=== PATIENT | male | born 1950 | race Caucasian/White ===

== ENCOUNTER 2017-01-19 14:04 | Emergency (ER) | payer OTHER ==
--- NOTE | 2017-01-19 14:13 | PDOC ---
Attending Attestation - Resident Resident Name: ReynaErasto - ED Attending Attestation I have performed the following: I have examined & evaluated the patient, The case was reviewed & discussed with the resident, I agree w/resident's findings & plan, Exceptions are as noted - HPI HPI: 01/19/17 15:44 Patient with chronically unstable gait since traumatic brain injury, tripped and fell, striking his left shoulder and the left side of his forehead on a tree trunk. No loss of consciousness. Arose immediately. Asymptomatic at present except for feeling a little "groggy", but he has felt this way since increasing his Lyrica dosage one week ago. - Physicial Exam PE: 01/19/17 15:45 Vital signs are normal. Alert oriented 3 cheerful and cooperative. Physical exam is notable for frozen left shoulder, range of motion, which is unchanged since his fall. No deformity point tenderness or pain at present in the shoulder. Minor superficial abrasion left forehead. No hematoma ecchymosis depression or point tenderness. Funduscopic exam is negative with sharp disc margins and good central venous pulsations noted. Neurological intact except for weakness of the trapezius muscle on the left and decreased sensation at the base of the thumb, which are unchanged since his pain injury. Remainder of physical exam within normal limits including sensory and motor of the extremities, except as noted above 01/19/17 15:49 - Medical Decision Making 01/19/17 15:47 Patient with minor injuries, no sign of serious neurologic or orthopedic trauma. Maintained on 1 full strength aspirin each day. Resident physician noted irregular heartbeat on exam. Plan brain CT, EKG, and labs. Further evaluation and treatment depending on results. Patient remained fully alert, no neurologic deficits, and asymptomatic. 01/19/17 17:15 CT: No acute injurie. EKG unchanged. Compared to previous tracing obtained from [facility]. Labs no significant abnormalities.
[2017-01-19 14:39] VITALS: BP 111/77; PULSE 56; TEMP 97.6; BMI 22.3
--- NOTE | 2017-01-19 15:12 | PDOC ---
History of Present Illness - General Chief Complaint: Injury Stated Complaint: FELL HITTING HIS HEAD THIS AM History Source: Patient, Family Exam Limitations: No Limitations - History of Present Illness Initial Comments: 01/19/17 15:05 The patient is a 66M with a PMH of CVA, spinal cord injury (cervical) and TBI who presented to the ED after sustaining a fall. The patient states that he was standing on his driveway when he crossed his legs and did not uncross them before taking a step. He states that he is on full strength asa, denies LOC, but admits to hitting his head after hitting his shoulder. The patient states he 's had a recent medication change, increase in lyrica and an addition of topomax and tramadol. The patient's only complaint is a "groggy" feeling after falling. He denies CP, SOB, numbness, tingling, weakness, nausea, or vomiting. PCP: Uzma Beltran Past History - Past Medical History Allergies/Adverse Reactions: Allergies Allergy/AdvReac Type Severity Reaction Status Date / Time No Known Allergies Allergy Verified 01/19/17 14:18 Home Medications: Ambulatory Orders Bupropion HCl [Wellbutrin Xl -] 300 mg PO DAILY 08/07/13 Lamotrigine [Lamictal Xr] 200 mg PO DAILY 08/07/13 Quetiapine Fumarate [Seroquel] 25 mg PO HS 08/07/13 Solifenacin Succinate [Vesicare] 10 mg PO DAILY 08/07/13 Aspirin [ASA -] 325 mg PO DAILY 01/19/17 Baclofen 5 mg PO QID 01/19/17 Pregabalin [Lyrica] 300 mg PO DAILY 01/19/17 Topiramate [Topamax] 25 mg PO BID 01/19/17 Tramadol HCl [Tramadol HCl ER] 100 mg PO HS 01/19/17 Anemia: No Asthma: No Cancer: No Cardiac Disorders: No CVA: Yes COPD: No CHF: No Dementia: No Diabetes: No GI Disorders: No Disorders: No HTN: No Hypercholesterolemia: No Liver Disease: No Seizures: No Thyroid Disease: No Other medical history: SPINAL CORD INJURY, TRAUMATIC BRAIN INJURY - Surgical History Abdominal Surgery: No Appendectomy: No Cardiac Surgery: No Cholecystectomy: No Lung Surgery: No Neurologic Surgery: No Orthopedic Surgery: Yes (Bilateral Shoulder Repair,Cervical Microdiscectomy, Left Hip Resurfacing) - Suicide/Smoking/Psychosocial Hx Smoking History: Never smoked Information on smoking cessation initiated: No Hx Alcohol Use: No Drug/Substance Use Hx: No Substance Use Type: None Hx Substance Use Treatment: No Review of Systems - Review of Systems Able to Perform ROS?: Yes Comments:: 01/19/17 15:14 GENERAL/CONSTITUTIONAL: No fever or chills. No weakness. HEAD, EYES, EARS, NOSE AND THROAT: No change in vision. No ear pain or discharge. No sore throat. GASTROINTESTINAL: No nausea, vomiting, diarrhea, constipation, or abdominal pain. GENITOURINARY: No dysuria, frequency, hematuria, or change in urination. CARDIOVASCULAR: No chest pain, palpitations, or lightheadedness. RESPIRATORY: No cough, wheezing, shortness of breath, or hemoptysis. MUSCULOSKELETAL: No joint or muscle swelling or pain. No neck or back pain. SKIN: No rash or lesions. NEUROLOGIC: No headache, numbness, tingling, weakness, loss of consciousness, or change in strength/sensation. ENDOCRINE: No increased thirst. No abnormal weight change. HEMATOLOGIC/LYMPHATIC: No anemia, easy bleeding, or history of blood clots. ALLERGIC/IMMUNOLOGIC: No hives or skin allergy. Is the patient limited Ugandan proficient: No *Physical Exam - Vital Signs Last Vital Signs Temp Pulse Resp BP Pulse Ox 97.6 F 56 L 16 111/77 100 01/19/17 14:05 01/19/17 14:05 01/19/17 14:05 01/19/17 14:05 01/19/17 14:05 - Physical Exam Comments: 01/19/17 15:15 GENERAL: Well developed, well nourished. Awake and alert. No acute distress. HEENT: Normocephalic, atraumatic. PERRLA, EOMI. No conjunctival pallor. Sclera are non- icteric. Moist mucous membranes. Oropharynx is clear. NECK: Supple. Full ROM. No JVD. Carotid pulses 2+ and symmetric, without bruits. No thyromegaly. No lymphadenopathy. CARDIOVASCULAR: Bradycardic with irregular rhythm. No murmurs, rubs, or gallops. Distal pulses are 2+ and symmetric. PULMONARY: No evidence of respiratory distress. Lungs clear to auscultation bilaterally. No wheezing, rales or rhonchi. ABDOMINAL: Soft. Non-tender. Non-distended. No rebound or guarding. No organomegaly. Normoactive bowel sounds. GENITOURINARY: No CVA tenderness bilaterally. MUSCULOSKELETAL Normal range of motion at all joints. No bony deformities or tenderness. EXTREMITIES: No cyanosis. No clubbing. No edema. No calf tenderness. No TTP over L shoulder or clavicle. Small skin tear over L wrist. No tenderness to palpation over any extremity. No TTP over scalp. No bony step offs. No c-spine tenderness or decrease in motion. SKIN: Warm and dry. Normal capillary refill. No rashes. No jaundice. NEUROLOGICAL: Alert, awake, appropriate. Cranial nerves 2-12 intact. No deficits to light touch and temperature in face, upper extremities and lower extremities. No motor deficits in the in face, upper extremities and lower extremities. Normoflexic in the upper and lower extremities. Normal speech. Toes are down-going bilaterally. Gait is normal without ataxia. PSYCHIATRIC: Cooperative. Good eye contact. Appropriate mood and affect. Heart Score/ECG Review - ECG Impressions Comment:: 01/19/17 16:41 Sinus bradycardia Rate 55 in ED ED Treatment Course - LABORATORY CBC & Chemistry Diagram: 01/19/17 15:35 01/19/17 15:35 - RADIOLOGY Radiology Studies Ordered: Category Date Time Status HEAD CT WITHOUT CONTRAST [CT] Stat CT Scan 01/19/17 15:01 Ordered Medical Decision Making - Medical Decision Making 01/19/17 15:17 The patient is a 66M with a PMH of CVA, TBI, and spinal cord injury who presents to the ED after sustaining a mechanical fall. I am concerned for a head bleed 2/2 patient's use of full dose aspirin and will order a head CT. This is less likely a CVA due to normal neuro exam and no acute onset of weakness. This is also less likely to be ACS but I will get an EKG to rule out STEMI. Will reassess when labs/imaging return. 01/19/17 16:[address] negative for acute intracranial pathology. 01/19/17 16:34 Patient understands reasons to return to the ER. Will f/u with PCP within 7 days. Patient agrees for d/c. *DC/Admit/Observation/Transfer Diagnosis at time of Disposition: Fall Qualifiers: Encounter type: initial encounter Qualified Code(s): W19.XXXA - Unspecified fall, initial encounter - Discharge Dispostion Disposition: HOME Condition at time of disposition: Stable Admit: No - Patient Instructions Printed Discharge Instructions: How to Prevent Falls Additional Instructions: Please return to the ER if symptoms persist, worsen, or new symptoms arise. Please follow up with your primary care doctor in 2-3 days and discuss your new medication changes. Please return to the ER if you have an intractable headache, nausea, vomiting, new onset numbness, tingling, or weakness. Print Language: JAMAICAN
[2017-01-19 15:45] LABS: MCH 33.1 pg (25.7-33.7); MCHC 33.8 g/dl (32.0-35.9); MEAN PLT VOLUME 7.8 fl (7.5-11.1); NEUTROPHILS 49.4 % (42.8-82.8); PLATELET COUNT 156 K/MM3 (134-434); RDW 12.4 % (11.9-15.9); WHITE BLOOD COUNT 5.8 K/mm3 (4.0-10.8)
[2017-01-19 16:02] LABS: ALK PHOS 94 U/L (32-92); ANION GAP 5 (8-16); BILIRUBIN,TOTAL 0.8 mg/dl (0.2-1.0); CALCIUM 9.4 mg/dl (8.4-10.2); CO2 25 mmol/L (22-28); CREATININE 0.9 mg/dl (0.6-1.3); GLUCOSE,RANDOM 93 mg/dl (74-106); SGOT/AST 23 U/L (10-42); SGPT/ALT 46 U/L (10-40); TOT PROT 6.2 g/dl (6.4-8.3)
--- NOTE | 2017-01-20 09:03 | EKG ---
Test Reason : Blood Pressure : / mmHG Vent. Rate : 047 BPM Atrial Rate : 047 BPM P-R Int : 212 ms QRS Dur : 096 ms QT Int : 456 ms P-R-T Axes : 071 -08 059 degrees QTc Int : 403 ms POOR DATA QUALITY, INTERPRETATION MAY BE ADVERSELY AFFECTED SINUS BRADYCARDIA WITH 1ST DEGREE A-V BLOCK OTHERWISE NORMAL ECG NO PREVIOUS ECGS AVAILABLE Confirmed by MAYNOR CAMPOS MD ([id number]) on 01/20/2017 9:03:24 AM Referred By: MD MANUEL Confirmed By:MAYNOR CAMPOS MD
== END 2017-01-19 16:44 | disposition home or self-care (01) ==
LOC: FER 14:04
DX: R42 Dizziness and giddiness (principal); W18.39XA Other fall on same level, initial encounter; Y93.89 Activity, other specified; Y92.9 Unspecified place or not applicable; Z86.73 Personal history of transient ischemic attack (TIA), and cerebral infarction without residual deficits; S06.9X0A Unspecified intracranial injury without loss of consciousness, initial encounter
CPT/HCPCS: 36415; 70450-TC; 80053; 85025; 93005; 99282-25

== ENCOUNTER 2017-11-02 09:29 | Emergency (ER) | payer OTHER ==
[2017-11-02 09:33] VITALS: BP 111/75; PULSE 64; TEMP 98.4; BMI 21.4
--- NOTE | 2017-11-02 09:36 | PDOC ---
History of Present Illness - General Chief Complaint: Injury Stated Complaint: FALL Time Seen by Provider: 11/02/17 09:30 History Source: Patient (Patient walked in complaining of a fall in the house due to unsteady gait secondary to prior CVA' s and neck injury) Exam Limitations: No Limitations - History of Present Illness Timing/Duration: 1/2 hour Severity: moderate Associated Symptoms: reports: denies symptoms Aspirin Received prior to arrival: Yes: 81 mg x 1 Past History - Travel Traveled outside of the country in the last 30 days: No Close contact w/someone who was outside of country & ill: No - Past Medical History Allergies/Adverse Reactions: Allergies Allergy/AdvReac Type Severity Reaction Status Date / Time No Known Allergies Allergy Verified 11/02/17 09:30 Home Medications: Ambulatory Orders Bupropion HCl [Wellbutrin Xl -] 300 mg PO DAILY 08/07/13 Lamotrigine [Lamictal Xr] 200 mg PO DAILY 08/07/13 Aspirin [ASA -] 325 mg PO DAILY 01/19/17 Atorvastatin Ca [Lipitor] 40 mg PO HS 11/02/17 Nortriptyline HCl 40 mg PO DAILY 11/02/17 Quetiapine Fumarate [Seroquel -] 25 mg PO HS 11/02/17 Solifenacin Succinate [Vesicare -] 10 mg PO DAILY 11/02/17 Anemia: No Asthma: No Cancer: No Cardiac Disorders: No CVA: Yes COPD: No CHF: No Dementia: No Diabetes: No GI Disorders: No Disorders: No HTN: No Hypercholesterolemia: No Liver Disease: No Psychiatric Problems: Yes (depression) Seizures: No Thyroid Disease: No Other medical history: TBI, C3 INJURY - Surgical History Abdominal Surgery: No Appendectomy: No Cardiac Surgery: No Cholecystectomy: No Lung Surgery: No Neurologic Surgery: No Orthopedic Surgery: Yes (Bilateral Shoulder Repair,Cervical Microdiscectomy, Left Hip Resurfacing) - Suicide/Smoking/Psychosocial Hx Smoking History: Never smoked Hx Alcohol Use: No Drug/Substance Use Hx: No Substance Use Type: None Hx Substance Use Treatment: No Review of Systems - Review of Systems Able to Perform ROS?: Yes Is the patient limited Nigerien proficient: Yes Constitutional: Yes: See HPI, Weakness HEENTM: No: Symptoms Reported, See HPI, Eye Pain, Blurred Vision, Tearing, Recent change in vision, Double Vision, Cataracts, Ear Pain, Ocular Prothesis, Ear Discharge, Nose Pain, Nose Congestion, Tinnitus, Nose Bleeding, Hearing Loss , Throat Pain, Throat Swelling, Mouth Pain, Dental Problems, Difficulty Swallowing, Mouth Swelling, Other Respiratory: No: Symptoms reported, See HPI, Cough, Orthopnea, Shortness of Breath, SOB with Exertion, SOB at Rest, Stridor, Wheezing, Productive cough, Hemoptysis, Other Cardiac (ROS): No: Symptoms Reported, See HPI, Chest Pain, Edema, Irregular Heart Rate, Lightheadedness, Palpitations, Syncope, Chest Tightness, Other ABD/GI: No: Symptoms Reported, See HPI, Abdominal Distended, Abd. Pain w/ defecation, Blood Streaked Bowels, Constipated, Diarrhea, Difficulty Swallowing , Nausea, Poor Appetite, Poor Fluid Intake, Rectal Bleeding, Vomiting, Indigestion, Abdominal cramping, Tarry Stools, Other : No: Symptoms Reported, See HPI, Burning, Dysuria, Discharge, Frequency, Flank Pain, Hematuria, Incontinence, Pain, Urgency, Testicular Mass, Testicular Swelling, Lesions, Testicular Pain, Other Integumentary: Yes: Other (abrasion skull and forehead) Neurological: Yes: Unsteady Gait Psychiatric: Yes: Emotional Problems Endocrine: No: Symptoms Reported, See HPI, Excessive Sweating, Flushing, Intolerance to Cold, Intolerance to Heat, Increased Hunger, Increased Thirst, Increased Urine, Unexplained Weight Gain, Unexplained Weight Loss, Change in Weight, Other Hematologic/Lymphatic: Yes: Easy Bruising All Other Systems: Reviewed and Negative *Physical Exam - Vital Signs Last Vital Signs Temp Pulse Resp BP Pulse Ox 98.4 F 64 18 111/75 100 11/02/17 09:29 11/02/17 09:29 11/02/17 09:29 11/02/17 09:29 11/02/17 09:29 - Physical Exam General Appearance: Yes: Nourished, Appropriately Dressed, Mild Distress, Thin HEENT: positive: AHMET, Normal ENT Inspection Neck: positive: Supple Respiratory/Chest: negative: Chest Tender, Lungs Clear, Normal Breath Sounds, Respiratory Distress, Accessory Muscle Use, Labored Respiration, Rapid RR, Decreased Breath Sounds, Paradoxal Breathing, Crackles, Rales, Rhonchi, Stridor , Wheezing, Hyperresonant, Dullness, Plerual Rub, Other Cardiovascular: negative: Regular Rhythm, Regular Rate, S1, S2, Edema, JVD, Murmur, Bradycardia, Tachycardia, Diastolic Murmur, Systolic Murmur, Gallop/S3, Gallop/S4, Irregularly Irregular, Irregular, Other Gastrointestinal/Abdominal: negative: Normal Bowel Sounds, Tender, Flat, Soft, Organomegaly, Pulsatile Mass, Increased Bowel Sounds, Decreased BS, Protuberent , Distended, Guarding, Rebound, Tenderness, Hernia, Mass, Hepatomegaly, Spleenomegaly, Other Lymphatic: negative: Adenopathy, Tenderness, Other Extremity: negative: Normal Capillary Refill, Normal Inspection, Normal Range of Motion, Tender, Pelvis Stable, Coldness, Cyanosis, Delayed Capillary Refill, Pedal Edema, Swelling, Calf Tenderness, Erythema, Inflammation, Other Integumentary: positive: Normal Color, Dry, Warm Neurologic: positive: Fully Oriented, Alert (Blunt affect) Medical Decision Making - Medical Decision Making The skin abrasion cleaned n bacitracin ointmnt applied 11/02/17 14:02 *DC/Admit/Observation/Transfer Diagnosis at time of Disposition: Fall Qualifiers: Encounter type: initial encounter Qualified Code(s): W19.XXXA - Unspecified fall, initial encounter Head trauma Qualifiers: Encounter type: initial encounter Qualified Code(s): S09.90XA - Unspecified injury of head, initial encounter - Discharge Dispostion Disposition: HOME Condition at time of disposition: Improved Decision to Admit order: No - Referrals Referrals: Uzma Beltran [Primary Care Provider] - - Patient Instructions Printed Discharge Instructions: Diphtheria, Tetanus, and Pertussis Vaccine, DI for Closed Head Injury Additional Instructions: Clean antonio, apply Bacitracin daily Return if symptoms - Post Discharge Activity
[2017-11-02] MEDS ORDERED: DIPHTH,PERTUSS(ACELL),TET 0.5 ML DISP.SYRIN IM ONE (09:43)
== END 2017-11-02 11:42 | disposition home or self-care (01) ==
LOC: FER 09:29
PROC: 3E0234Z Introduction of Serum, Toxoid and Vaccine into Muscle, Percutaneous Approach (ICD-10-PCS; principal; 2017-11-02)
DX: S00.91XA Abrasion of unspecified part of head, initial encounter (principal); W18.39XA Other fall on same level, initial encounter; Y93.89 Activity, other specified; Y92.009 Unspecified place in unspecified non-institutional (private) residence as the place of occurrence of the external cause; F32.9 Major depressive disorder, single episode, unspecified
CPT/HCPCS: 70450-TC; 90715; 99281-25

== ENCOUNTER 2018-09-12 17:25 | Observation (INO) | payer OTHER | END 2018-09-14 18:17 | disposition home or self-care (01) | LOC: FER 17:25 → FM/S 21:12 | DX: R27.0 Ataxia, unspecified (principal); R00.1 Bradycardia, unspecified ==